=== PATIENT | male | born 1995 | race Caucasian/White ===

== ENCOUNTER 2021-04-13 08:21 | Emergency (ER) | payer OTHER ==
[2021-04-13 09:47] VITALS: BP 156/84; PULSE 93; TEMP 99.7; BMI 22.9
== END 2021-04-13 10:04 | disposition home or self-care (01) ==
LOC: JER 08:21
DX: J11.1 Influenza due to unidentified influenza virus with other respiratory manifestations (principal)
CPT/HCPCS: 87804; 87807; 99283-25; C9803; U0003; U0005